=== PATIENT | female | born 1965 | race Caucasian/White ===

== ENCOUNTER 2018-10-10 21:02 | Emergency (ER) | payer BC ==
[2018-10-10] MEDS ORDERED: Ondansetron 4 MG/2 ML SDV IVPUSH ONE (21:38)
[2018-10-10] MEDS ORDERED: LORazepam 2 MG/ML SDV IVPUSH ONE (21:38)
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
[2018-10-10] MEDS: Sodium Chloride 0.9% 10 ML Syringe FLUSH PRN ×2 (21:54→21:58)
[2018-10-10] MEDS ORDERED: Sodium Chloride 0.9% 100 ML IV SCH (22:15)
[2018-10-10] MEDS ORDERED: Iopamidol 755 Mg/ML 100 ML Bottle IV SCH (22:15)
--- NOTE | 2018-10-10 23:18 | CRLCT ---
INDICATION: Bilateral nystagmus, severe vertigo. TECHNIQUE: CTA of the head was performed after the administration of intravenous contrast. Multiplanar Maximum Intensity Projections (MIPs) were created on a separate workstation at the request of the referring physician. COMPARISON: None available FINDINGS: Angiographic findings: There is no aneurysm or vascular malformation. There is no significant stenosis of the intracranial internal carotid arteries. An anterior communicating artery is well visualized and is normal. The anterior and middle cerebral arteries are normal. The vertebral arteries are left dominant. The intracranial posterior circulation is unremarkable. Deep cerebral veins and dural venous sinuses are unremarkable. Non-angiographic findings: Ventricles are of normal size and morphology. No mass effect or midline shift is present. The visualized portions of the orbits are normal. The paranasal sinuses and mastoid air cells are clear. There are no suspicious lytic or blastic lesions. IMPRESSION: No significant stenosis or occlusion of the intracranial arteries Please note that all CT scans at this facility use dose modulation, iterative reconstruction, and/or weight-based dosing when appropriate to reduce radiation dose to as low as reasonably achievable. Dictated by Too Gunter MD @ Oct 11 2018 4:22AM Signed by Dr. Too Gunter @ Oct 11 2018 4:26AM
[2018-10-10] MEDS ORDERED: Meclizine 25 MG Tab PO ONE (23:23)
[2018-10-11] MEDS ORDERED: Prochlorperazine 10 MG/2 ML SDV IVPUSH ONE (00:22)
[2018-10-11] MEDS ORDERED: Ondansetron 4 MG/2 ML SDV IV PRN (00:25)
[2018-10-11] MEDS ORDERED: Zolpidem 5 MG Tab PO PRN (00:25)
[2018-10-11] MEDS: Sodium Chloride 0.9% 10 ML Syringe FLUSH PRN (00:32)
[2018-10-11] MEDS: Lactated Ringers 1,000 ML IV SCH ×3 (01:03→17:10)
--- NOTE | 2018-10-11 07:58 | HP ---
CHIEF COMPLAINT: Vertigo. HISTORY OF PRESENT ILLNESS: A 52-year-old who all of a sudden on the started having problems with vertigo with nausea, but did not throw up; seemed to be better when she would close her eyes. She had a similar episode about 15 years ago, was treated with meclizine and did resolve. She has been feeling well up until . She came into the emergency room for further evaluation and was noted to have significant nystagmus. When it was checked by the emergency room physician, she had nausea. They did treat her with Zofran, Ativan, and meclizine. She has had some improvement when she felt like she wanted to go home, but when they stood her up, her nystagmus increased, and she had nausea and vomiting, difficulty ambulating. I was asked to admit the patient for further evaluation and treatment. PAST MEDICAL HISTORY: 1. Hypothyroidism. 2. Anxiety. 3. Vertigo about 15 years ago. MEDICATIONS: Fluoxetine 20 mg at bedtime and levothyroxine 100 mcg daily. ALLERGIES: TO AUGMENTIN. SOCIAL HISTORY: Nonsmoker. No significant alcohol use. FAMILY HISTORY: No vertigo that runs in the family. REVIEW OF SYSTEMS: Does have the vertiginous symptoms with nausea and vomiting. Last time, she threw up was just before coming upstairs. Denies any chest pain or shortness of breath. No diarrhea or constipation. No urinary problems. No swelling of her legs. No skin problems. OBJECTIVE: VITAL SIGNS: Temperature 35.7, pulse 77, blood pressure 118/78, respirations 16, and O2 saturation 95% on room air. GENERAL: The patient is alert and oriented x3. EARS: Clear. EYES: She does have horizontal nystagmus bilaterally. PHARYNX: Clear. NECK: Supple. No adenopathy, thyromegaly, JVD, or carotid bruits. LUNGS: Clear. HEART: Regular without murmurs. ABDOMEN: Soft, nontender. No mass or organomegaly palpated. EXTREMITIES: No edema. SKIN: Negative. NEURO: Cranial nerves II through XII are grossly intact except for the vertigo. Alert and oriented x3. Mental status seems to be normal. IMAGING DATA: CT scan of her brain was unremarkable. LABORATORY DATA: White count 9.2, hemoglobin 14.5, platelets 224,000. Sodium 137, potassium 3.7, BUN of 16, creatinine 0.9, glucose 182, calcium 10.1. ASSESSMENT AND PLAN: 1. Vertigo, improved with medication, but still not well enough to go home. We will admit her under observation and see how she is doing in the morning, discharge when she is able to control her symptoms well enough to go home. 2. Hypothyroidism. 3. Anxiety. Cristobal Dubose MD /[id number]
[2018-10-11] MEDS: Levothyroxine 100 MCG Tab PO SCH (09:12)
[2018-10-11] MEDS: Meclizine 25 MG Tab PO PRN ×2 (09:12→21:22)
[2018-10-11] MEDS ORDERED: LORazepam 2 MG/ML SDV IVPUSH PRN (10:22)
--- NOTE | 2018-10-11 11:13 | PCM.PN ---
- General Info Date of Service: 10/11/18 Subjective Update: No acute events or nausea overnight following admission until late this morning when the patient had additional episodes of nausea and vomiting. She still feels very dizzy when she sitting up. Feels better when she is laying down on her back with her head tilted to the left side and her eyes closed. No headache. - Review of Systems Gastrointestinal: Reports: Nausea, Vomiting Neurological: Reports: Dizziness - Patient Data Vitals - Most Recent: Last Vital Signs Temp 36.6 C 10/11/18 10:25 Pulse 71 10/11/18 10:25 Resp 18 10/11/18 10:25 BP 130/71 10/11/18 10:25 Pulse Ox 97 10/11/18 10:25 Weight - Most Recent: 95.345 kg I&O - Last 24 Hours: Intake & Output 10/10/18 10/11/18 10/11/18 22:59 06:59 14:59 Output Total 350 500 Balance -350 -500 Lab Results Last 24 Hours: Laboratory Results - last 24 hr 10/10/18 10/10/18 Range/Units 21:38 21:38 WBC 9.2 (4.5-11.0) K/uL RBC 4.91 (3.30-5.50) M/uL Hgb 14.5 (12.0-15.0) g/dL Hct 42.8 (36.0-48.0) % MCV 87 (80-98) fL MCH 30 (27-31) pg MCHC 34 (32-36) % Plt Count 224 (150-400) K/uL Sodium 137 L (140-148) mmol/L Potassium 3.7 (3.6-5.2) mmol/L Chloride 100 (100-108) mmol/L Carbon Dioxide 21 (21-32) mmol/L Anion Gap 19.7 H (5.0-14.0) mmol/L BUN 16 (7-18) mg/dL Creatinine 0.9 (0.6-1.0) mg/dL Est Cr Clr Drug Dosing 67.12 mL/min Estimated GFR (MDRD) > 60 (>60) Glucose 182 H (74-106) mg/dL Calcium 10.1 (8.5-10.1) mg/dL Med Orders - Current: Current Medications Fluoxetine HCl (Prozac) 20 mg PO BEDTIME KARLIE Sodium Chloride (Normal Saline) 100 mls @ 4 mls/sec IV ASDIRECTED KARLIE Last Admin: 10/10/18 22:26 Dose: 4 mls/sec Lactated Ringer's (Ringers, Lactated) 1,000 mls @ 125 mls/hr IV ASDIRECTED KARLIE Last Admin: 10/11/18 09:13 Dose: 125 mls/hr Iopamidol (Isovue-370 (76%)) 100 ml IV . DIRECTED KARLIE Last Admin: 10/10/18 22:26 Dose: 100 ml Levothyroxine Sodium (Synthroid) 100 mcg PO ACBREAKFAST KARLIE Last Admin: 10/11/18 09:12 Dose: 100 mcg Lorazepam (Ativan) 1 mg IVPUSH Q4H PRN PRN Reason: Nausea/Vomiting Last Admin: 10/11/18 10:37 Dose: 1 mg Meclizine HCl (Antivert) 25 mg PO Q6H PRN PRN Reason: vertigo Last Admin: 10/11/18 09:12 Dose: 25 mg Ondansetron HCl (Zofran) 4 mg IV Q4H PRN PRN Reason: Nausea/Vomiting Last Admin: 10/11/18 09:12 Dose: 4 mg Sodium Chloride (Saline Flush) 10 ml FLUSH ASDIRECTED PRN PRN Reason: Keep Vein Open Last Admin: 10/11/18 00:32 Dose: 10 ml Zolpidem Tartrate (Ambien) 5 mg PO BEDTIME PRN PRN Reason: Sleep Discontinued Medications Lorazepam (Ativan) 1 mg IVPUSH ONETIME ONE Stop: 10/10/18 21:39 Last Admin: 10/10/18 21:53 Dose: 1 mg Meclizine HCl (Antivert) 25 mg PO ONETIME ONE Stop: 10/10/18 23:24 Last Admin: 10/10/18 23:31 Dose: 25 mg Ondansetron HCl (Zofran) 4 mg IVPUSH ONETIME ONE Stop: 10/10/18 21:39 Last Admin: 10/10/18 21:55 Dose: 4 mg Prochlorperazine Edisylate (Compazine) 5 mg IVPUSH ONETIME ONE Stop: 10/11/18 00:23 Last Admin: 10/11/18 00:30 Dose: 5 mg - Exam Quality Assessment: No: Supplemental Oxygen General: Alert, Oriented, Cooperative, Mild Distress HEENT: Pupils Equal Lungs: Normal Respiratory Effort GI/Abdominal Exam: Soft, No Distention Extremities: No Pedal Edema Psy/Mental Status: Alert, Normal Affect - Problem List Review Problem List Initiated/Reviewed/Updated: Yes - My Orders Last 24 Hours: My Active Orders 10/11/18 08:24 Meclizine [Antivert] 25 mg PO Q6H PRN 10/11/18 10:22 LORazepam [Ativan] 1 mg IVPUSH Q4H PRN - Plan Plan:: ASSESSMENT AND PLAN - Paroxysmal vertigo - suspect inner ear disturbance. Symptomatically little better today but still has significant his anus with nausea and vomiting. -Meclizine for mild dizziness -Ondansetron and lorazepam for breakthrough symptoms or if vomiting Maintenance issues - - DVT prophylaxis - patient has been ambulatory - GI prophylaxis - not indicated - Nutrition - clears, advance when she feels better - Romero catheter - not indicated Disposition - I would anticipate discharge home after the hospital stay Lionel Manning M.D.
[2018-10-11] MEDS: Acetaminophen 325 MG Tab PO PRN (17:25)
[2018-10-11] MEDS ORDERED: FLUoxetine 20 MG Cap PO SCH (21:00)
[2018-10-12] MEDS: Lactated Ringers 1,000 ML IV SCH (00:52)
[2018-10-12] MEDS: Acetaminophen 325 MG Tab PO PRN ×2 (01:00→07:53)
[2018-10-12] MEDS: Levothyroxine 100 MCG Tab PO SCH (07:50)
[2018-10-12] MEDS: Meclizine 25 MG Tab PO PRN (09:12)
--- NOTE | 2018-10-12 12:17 | PCM.DCSUM1 ---
Discharge Summary - Hospital Course Brief History: Healthy 52-year-old female with one previous episode of vertigo who presented to the emergency room with dizziness, nausea and vomiting. She was admitted for management of vertigo with persistent nausea and intermittent vomiting. Diagnosis: Stroke: No - Discharge Data Discharge Date: 10/12/18 Discharge Disposition: Home, Self-Care 01 Condition: Fair - Discharge Diagnosis/Problem(s) (1) Vertigo SNOMED Code(s): 384437074 ICD Code: R42 - DIZZINESS AND GIDDINESS Status: Acute Current Visit: Yes - Patient Summary/Data Hospital Course: [place] presented to the emergency room with dizziness, nausea and vomiting. Workup in the emergency room was consistent with vertigo. A CT scan of the head with IV contrast was performed to rule out occult stroke and this was unremarkable. Initially she was feeling better with treatment provided the emergency room but was extremely unsteady on her feet and had recurrent vomiting when she tried to ambulate to go home. She was admitted for observation and symptom management. Overnight she received IV fluids as well as symptomatic management of nausea and dizziness. By the morning after admission she is feeling a little better but still unable to keep her eyes open without significant dizziness. We did attempt the Sarah maneuvers with some minor improvement in symptoms. Fluids were continued throughout the day and overnight following the first day of admission. By the morning of discharge she is feeling a fair amount better. She is able to keep at least one eye open. She was able to ambulate with standby assist to get to the bathroom and back. She has tolerated both breakfast and lunch without nausea or vomiting. She feels well enough to go home and has several folks at home that can help her with ambulation as the symptoms continue to resolve. This could have been either an episode of acute vertigo or possibly a viral labyrinthitis. Symptoms are resolving fairly quickly. She does have a prescription for both meclizine and Zofran. She will follow-up if symptoms do not continue to get better. - Patient Instructions Diet: Regular Diet as Tolerated Activity: As Tolerated Driving: Do Not Drive (until symptoms have resolved) Showering/Bathing: May Shower Notify Provider of: Fever, Increased Pain Other/Special Instructions: 1. You were in the hospital for management of an episode of vertigo. Your symptoms have been improving with the use of IV fluids , anti-nausea medications and meclizine to help with dizziness. I have provided prescriptions for both ondansetron (Zofran) and meclizine. You may use the ondansetron every 6 hours as needed for nausea. You may use the meclizine every 6 hours as needed for dizziness. 2. You may return to work on Saturday if your symptoms have resolved. 3. Seek medical attention if you have fever greater than 101, if your symptoms persist for several days or if they get worse. Your primary care physician may refer you to a physical therapist who provides vestibular rehabilitation. - Discharge Plan *PRESCRIPTION DRUG MONITORING PROGRAM REVIEWED*: Not Applicable *COPY OF PRESCRIPTION DRUG MONITORING REPORT IN PATIENT MELANIE: Not Applicable Prescriptions/Med Rec: Meclizine [Antivert] 25 mg PO Q6H PRN #20 tablet PRN Reason: vertigo Ondansetron [Ondansetron Odt] 4 mg PO Q6H PRN #10 tab.rapdis PRN Reason: Nausea Home Medications: Home Meds FLUoxetine HCl [Fluoxetine] 20 mg PO BEDTIME 10/10/18 [History] Levothyroxine [Synthroid] 100 mcg PO ACBREAKFAST 10/10/18 [History] Meclizine [Antivert] 25 mg PO Q6H PRN #20 tablet 10/12/18 [Rx] Ondansetron [Ondansetron Odt] 4 mg PO Q6H PRN #10 tab.rapdis 10/12/18 [Rx] Oxygen Therapy Mode: Room Air Patient Handouts: Vertigo, Meclizine tablets or capsules Referrals: PCP,None [Primary Care Provider] - (Follow-up with your primary care if symptoms do not continue to improve or if they get worse) - Discharge Summary/Plan Comment DC Time >30 min.: No - Patient Data Vitals - Most Recent: Last Vital Signs Temp 36.0 C 10/12/18 11:25 Pulse 56 L 10/12/18 11:25 Resp 16 10/12/18 11:25 BP 113/60 10/12/18 11:25 Pulse Ox 97 10/12/18 11:25 Weight - Most Recent: 95.345 kg I&O - Last 24 hours: Intake & Output 10/11/18 10/12/18 10/12/18 22:59 06:59 14:59 Intake Total 1604 2323 425 Output Total 933 635 4953 Balance 1204 1523 -285 Med Orders - Current: Current Medications Acetaminophen (Tylenol) 650 mg PO Q4H PRN PRN Reason: Pain Last Admin: 10/12/18 07:53 Dose: 650 mg Fluoxetine HCl (Prozac) 20 mg PO BEDTIME [facility] Last Admin: 10/11/18 21:18 Dose: 20 mg Lactated Ringer's (Ringers, Lactated) 1,000 mls @ 125 mls/hr IV ASDIRECTED [facility] Last Admin: 10/12/18 00:52 Dose: 125 mls/hr Iopamidol (Isovue-370 (76%)) 100 ml IV . DIRECTED [facility] Last Admin: 10/10/18 22:26 Dose: 100 ml Levothyroxine Sodium (Synthroid) 100 mcg PO ACBREAKFAST [facility] Last Admin: 10/12/18 07:50 Dose: 100 mcg Lorazepam (Ativan) 1 mg IVPUSH Q4H PRN PRN Reason: Nausea/Vomiting Last Admin: 10/11/18 10:37 Dose: 1 mg Meclizine HCl (Antivert) 25 mg PO Q6H PRN PRN Reason: vertigo Last Admin: 10/12/18 09:12 Dose: 25 mg Ondansetron HCl (Zofran) 4 mg IV Q4H PRN PRN Reason: Nausea/Vomiting Last Admin: 10/11/18 09:12 Dose: 4 mg Sodium Chloride (Saline Flush) 10 ml FLUSH ASDIRECTED PRN PRN Reason: Keep Vein Open Last Admin: 10/11/18 00:32 Dose: 10 ml Zolpidem Tartrate (Ambien) 5 mg PO BEDTIME PRN PRN Reason: Sleep Discontinued Medications Sodium Chloride (Normal Saline) 100 mls @ 4 mls/sec IV ASDIRECTED [facility] Last Admin: 10/10/18 22:26 Dose: 4 mls/sec Lorazepam (Ativan) 1 mg IVPUSH ONETIME ONE Stop: 10/10/18 21:39 Last Admin: 10/10/18 21:53 Dose: 1 mg Meclizine HCl (Antivert) 25 mg PO ONETIME ONE Stop: 10/10/18 23:24 Last Admin: 10/10/18 23:31 Dose: 25 mg Ondansetron HCl (Zofran) 4 mg IVPUSH ONETIME ONE Stop: 10/10/18 21:39 Last Admin: 10/10/18 21:55 Dose: 4 mg Prochlorperazine Edisylate (Compazine) 5 mg IVPUSH ONETIME ONE Stop: 10/11/18 00:23 Last Admin: 10/11/18 00:30 Dose: 5 mg - Exam Quality Assessment: Denies: Supplemental Oxygen General: Reports: Alert, Oriented, Cooperative, No Acute Distress Neck: Reports: Supple Lungs: Reports: Normal Respiratory Effort GI/Abdominal Exam: Soft, No Distention Psy/Mental Status: Reports: Alert, Normal Affect
== END 2018-10-12 13:21 | disposition home or self-care (01) ==
LOC: JP.ED 21:02 → JP.MS 10-11 00:25
PROVIDERS: ADMIT Family Medicine; ATTEND Internal Medicine
DX: R42 Dizziness and giddiness (principal); R11.2 Nausea with vomiting, unspecified; E03.9 Hypothyroidism, unspecified; Z88.1 Allergy status to other antibiotic agents; Z79.899 Other long term (current) drug therapy; Z90.710 Acquired absence of both cervix and uterus
CPT/HCPCS: 36415; 70496; 80048; 85027; 96361; 96374; 96375; 96376; 99285; A9270; G0378; J0780; J2060; J2405; J7030; J7120; Q9967